=== PATIENT | male | born 2000 ===

== ENCOUNTER 2021-03-21 07:53 | Outpatient (CLI) | payer BC, SELFPAY ==
--- NOTE | 2021-04-05 11:44 | WPDHOMESLEEP ---
Sleep Study - Home Unattended Date of Study: 03/21/21 Ordering Provider: Sawyer Kuhn PA-C Interpreting Provider: Barbra Shin MD Home Sleep Study Type: Italo Oliva Height: 1.78 m Weight: 58.967 kg Body Mass Index: 18.6 Neck Circumference (inches): 14 Start: 0 Reason for Sleep Study Hypersomnia, feeling tired after full night of sleep, Sleep History Tad Juares is a 20 year old man with complaints of feeling tired after a full night of sleep. This has been going on for several years. He denies awakening from sleep feeling short of breath, awakening at night with heartburn, belching or coughing. He does not snore. He does not have trouble sleeping with a cold. He denies waking up gasping for breath at night or having breathing problems at night observed by others. He does not sweat excessively at night or notice his heart pounding or beating irregularly at night. He does not fall asleep during the day, does not fall asleep involuntarily or while driving. He does not have loss of muscle tone with strong emotion. He does not have daytime difficulties due to excessive sleepiness. He does not feel paralyzed on waking or falling asleep. He does not feel afraid to go to sleep. He occasionally has nightmares. He frequently remembers his dreams. He occasionally has racing thoughts. He does not feel sad or depressed. He rarely feels anxious. He does not have muscular tension or notices parts of his body jerking. He does not kick at night. He denies having crawling or aching feelings in his legs. He denies any kind of leg pain at night. He does not have morning jaw pain. He denies grinding his teeth during sleep. He is not bothered by pain during the day nor is he awakened by pain during the night. He does not wake up feeling stiff in the morning with sore achy muscles or pain in the neck and spine. Normal bedtime is between 4:00 a.m. and 6:00 a.m. falling asleep within 15 minutes waking occasionally during the night to get a drink of water. He is able to return to sleep within 5 minutes. He wakes at 2:00 p.m.. He generally does not take naps. A short nap is not refreshing. He is usually drowsy after waking for 1 hour. He feels better in the evening compared to other times of day. Habits: Never smoked tobacco. Caffeine 0-1 servings daily. No alcohol or recreational drugs. [facility] Past Medical History Medical History (Updated 04/05/21 @ 15:32 by Barbra Shin MD) ADHD (attention deficit hyperactivity disorder) Depression Family History Family History Mother Patient's mother is in good health Father Patient's father is in good health Sibling Patient's brother is in good health Social History Social History Smoking status: Never smoker Second hand tobacco smoke exposure: No Alcohol intake: never Substance use: never Medications Home Medications Medication Instructions Recorded Confirmed Type dextroamphetamine-amphetamine 20 20 mg PO .COMPLEX #60 tablet 03/15/21 Rx mg tablet Sleep Procedure This test was performed using 4 channel monitoring including respiratory effort channel, snoring channel, heart rate channel, and oxygen saturation channel. This study was scored using CMS guidelines. Sleep Architecture Not applicable for home sleep test. Respiratory Analysis Recording duration 6 hours 20 minutes. Evaluation duration 5 hours 31 minutes. The apnea-hypopnea index is 3.3, in the normal range. He had 15 apneas. He had 7 obstructive apneas, 47% the total and 8 central apneas, 53% of the total. He had 3 hypopneas. There was no evidence of Jonas-Fajardo respirations. Oximetry Data He had a baseline saturation of 99%. Average saturation 97%. Lowest desaturation 93%. He had 8 desaturations of 4% or greater. There was no time spent below 88%. orin
[2021-04-05 15:30] VITALS: BMI 18.6
== END 2021-03-22 12:51 | disposition home or self-care (01) ==
LOC: ANHCSM 08:01
PROVIDERS: PCP Physician Assistant; Visit Provider Physician Assistant
DX: G47.10 Hypersomnia, unspecified (principal); F51.5 Nightmare disorder; Z72.821 Inadequate sleep hygiene; F32.9 Major depressive disorder, single episode, unspecified
CPT/HCPCS: 95806